=== PATIENT | female | born 1975 | race Caucasian/White ===

== ENCOUNTER 2023-10-18 12:29 | Emergency (ER) | payer BC ==
[2023-10-18 12:47] VITALS: BP 110/65; PULSE 74; RESP 20; TEMP 98.2; BMI 31.8
[2023-10-18] MEDS ORDERED: AMPICILLIN NA/SULBACTAM NA 3 GM/100 ML BAG IVPB ONE (15:02)
[2023-10-18] MEDS: AMPICILLIN NA/SULBACTAM NA 3 GM in SODIUM CHLORIDE 100 ML IVPB ONE (15:19)
[2023-10-18 15:23] LABS: BASO % 2.4 % (0-2.0); EOS % 2.7 % (0-4.5); HEMATOCRIT 37.9 % (32.4-45.2); HEMOGLOBIN 12.8 GM/dL (10.7-15.3); LYMPH % 37.3 % (8-40); MCH 29.4 pg (25.7-33.7); MCHC 33.8 g/dl (32.0-36.0); MEAN PLT VOLUME 7.7 fl (7.5-11.1); MONO % 10.2 % (3.8-10.2); NEUT % 47.4 % (42.8-82.8); PLATELET COUNT 440 10^3/uL (134-434); RBC 4.36 M/mm3 (3.60-5.2); WHITE BLOOD COUNT 5.1 K/mm3 (4.0-10.0)
[2023-10-18 15:44] LABS: POTASSIUM 4.2 mmol/L (3.5-5.1)
[2023-10-18 15:46] LABS: CALCIUM 8.8 mg/dL (8.5-10.1)
[2023-10-18 15:47] LABS: ALBUMIN 2.9 g/dl (3.4-5.0)
[2023-10-18 15:50] LABS: CREATININE 0.8 mg/dL (0.55-1.3)
[2023-10-18 15:51] LABS: BILIRUBIN,TOTAL 0.2 mg/dL (0.2-1); TOT PROT 6.7 g/dl (6.4-8.2)
== END 2023-10-18 16:51 | disposition home or self-care (01) ==
LOC: JER 12:29
DX: L03.115 Cellulitis of right lower limb (principal); R50.9 Fever, unspecified; M79.661 Pain in right lower leg; R60.0 Localized edema
CPT/HCPCS: 36415; 80053; 85025; 93971-TC; 99284-25